=== PATIENT | female | born 1960 ===

== ENCOUNTER 2018-12-31 16:36 | Emergency (ER) | payer BC, OTHER ==
[2018-12-31 16:36] VITALS: BMI 34.0
[2018-12-31 17:01] VITALS: BP 163/84; PULSE 88; RESP 18; TEMP 98.3; O2SAT 96
--- NOTE | 2018-12-31 17:20 | C.PDOC ---
History Of Present Illness Patient is a 58 year old female who presents to the ED c/o digitally reproducible pain to the left upper chest with many similar presentations. Patient also complains of poorly controlled blood sugar and states that she doesn't check her finger stick, but it is occasionally more than 300. Patient also states that she doesn't relate a diabetic food and exercise regimen. She denies any chest pressure, SOB, nausea, or diaphoresis. Time Seen by Provider: 12/31/18 17:17 Chief Complaint (Nursing): Chest Pain History Per: Patient History/Exam Limitations: no limitations Onset/Duration Of Symptoms: Days Current Symptoms Are (Timing): Still Present Quality: "Pain" (digitally reproducible pain to left upper chest) Associated Symptoms: denies: Nausea, Diaphoresis, Other (SOB, chest tightness ) Recent travel outside of the [place]: No Additional History Per: Patient Past Medical History Reviewed: Historical Data, Nursing Documentation, Vital Signs Vital Signs: Last Vital Signs Temp 98.3 F 12/31/18 16:56 Pulse 88 12/31/18 16:56 Resp 18 12/31/18 16:56 BP 163/84 H 12/31/18 16:56 Pulse Ox 96 12/31/18 16:56 - Medical History PMH: Diabetes, HTN, Hypercholesterolemia, Kidney Stones Denies: Asthma Surgical History: Cholecystectomy, Family History: States: Unknown Family Hx - Social History Hx Tobacco Use: No Hx Alcohol Use: No Hx Substance Use: No - Immunization History Hx Tetanus Toxoid Vaccination: No Hx Influenza Vaccination: No Hx Pneumococcal Vaccination: No Review Of Systems Constitutional: Negative for: Sweats Cardiovascular: Positive for: Other (digitally reproducible pain to left upper chest. no chest pressure ) Respiratory: Negative for: Shortness of Breath Gastrointestinal: Negative for: Nausea Physical Exam - Physical Exam Appears: Non-toxic, No Acute Distress, Other (obese female ) Skin: Normal Color, Warm, Dry, No Rash Head: Atraumatic, Normacephalic Oral Mucosa: Moist Neck: Normal ROM, Supple Chest: Symmetrical, No Deformity, Tenderness (digitally reproducible pain to left upper chest around the pectoralis muscle ) Cardiovascular: Rhythm Regular, No Murmur Respiratory: Normal Breath Sounds, No Rales, No Rhonchi, No Wheezing Gastrointestinal/Abdominal: Soft Extremity: Normal ROM Neurological/Psych: Oriented x3, Normal Speech ED Course And Treatment ECG: Interpreted By Me ECG Rhythm: Sinus Rhythm ECG Interpretation: Normal Rate From EC O2 Sat by Pulse Oximetry: 96 (on RA) Pulse Ox Interpretation: Normal Medical Decision Making Medical Decision Making: Plan: EKG Motrin Tab 600mg PO L upper chest wall discomfort, positionally and digitally reproducable normal EKG many prior evals for same with neg w/u. NSAIDS poorly controlled dm pt relates glu >300's @ home ? compliance w Metformin 500 mg PO BID increase to Metformin 1000 mg PO BID diet/exercise changes reinforced. Disposition Doctor Will See Patient In The: Office Counseled Patient/Family Regarding: Studies Performed, Diagnosis - Disposition Referrals: [facility] [Outside] [facility] [Outside] [facility] [Outside] [facility] [Outside] Disposition: HOME/ ROUTINE Disposition Time: 17:31 Condition: GOOD Additional Instructions: dolor del pared del pecho: bolsa de hielo 1/2 hora por hora, nada caliente ibuprofeno 400-600 mg cada 6 horas jaylan necessario No levanta nada pesada por 1 semana Diabetes: Aumenta garcia Metformina hasta 1000 mg dos veces al jaylyn con comidas Checke garcia azucar antes del desayuno y la asia Cambios de dieta y ejercisio sigue con garcia medico o' [facility] en 1 mes. Prescriptions: MetFORMIN [glucoPHAGE] 1,000 mg PO BID #60 tab Instructions: Type 2 Diabetes, Costochondritis Forms: [facility] (Citizen Of [place]) Print Language: [place] - Clinical Impression Clinical Impression: Chest wall discomfort, Diabetes - Scribe Statement The provider has reviewed the documentation as recorded by the Silvanoibsergio Bates All medical record entries made by the Scribe were at my direction and personally dictated by me. I have reviewed the chart and agree that the record accurately reflects my personal performance of the history, physical exam, medical decision making, and the department course for this patient. I have also personally directed, reviewed, and agree with the discharge instructions and disposition.
--- NOTE | 2019-01-01 11:53 | CARD ---
APPROVED REPORT Date of service: 12/31/2018 EKG Measurement Heart [id number] <Conclusion> Normal sinus rhythm Possible Left atrial enlargement Borderline ECG
== END 2018-12-31 17:54 | disposition home or self-care (01) ==
LOC: C.ER 16:36
DX: R07.89 Other chest pain (principal); E11.65 Type 2 diabetes mellitus with hyperglycemia

== ENCOUNTER 2019-02-06 12:14 | Outpatient (CLI) | payer OTHER | END 2019-02-06 12:15 | disposition home or self-care (01) | LOC: C.LAB 12:14 | DX: E11.8 Type 2 diabetes mellitus with unspecified complications (principal); I10 Essential (primary) hypertension; Z12.11 Encounter for screening for malignant neoplasm of colon; Z13.9 Encounter for screening, unspecified ==

== ENCOUNTER 2019-02-11 15:44 | Outpatient (CLI) | payer OTHER | END 2019-02-11 15:45 | disposition home or self-care (01) | LOC: C.LAB 15:44 | DX: E11.8 Type 2 diabetes mellitus with unspecified complications (principal) ==

== ENCOUNTER 2019-02-19 09:12 | Outpatient (CLI) | payer OTHER | END 2019-02-19 09:13 | disposition home or self-care (01) | LOC: C.MAMMO 09:12 | DX: Z12.31 Encounter for screening mammogram for malignant neoplasm of breast (principal) ==